=== PATIENT | male | born 1960 ===

== ENCOUNTER 2017-02-21 19:39 | Observation (INO) | payer OTHER ==
[~2017-02-21] VITALS: Ht 166.4 cm; Wt 82.6 kg
[2017-02-21] VITALS (7 sets, daily range): BP systolic 109–122; BP diastolic 66–78; PULSE 61–72; RESP 16–22; O2SAT 92–96
[~2017-02-21 19:39] MED LIST: FLUO40CA12 PO; LORA-302 PO; SMV40T PO; VICODIN 5-3251 EACH PO
--- NOTE | 2017-02-21 19:49 | ED.REPORT ---
HPI-Chest Pain 40 and Over Date of Service Feb 21, 2017 ED Provider: MD Pedro This is a 56 year old male with a history of AK, CAD, hypertension, hyperlipidemia, anxiety presenting to the emergency department via EMS due to sudden onsert right sided, sharp chest pain that began just prior to arrival. Pt was driving when he suddenly developed chest cramping. Denies radiation of pain. Denies SOB, nausea, vomiting, or diaphoresis. En route administered ASA, NTG, and fentanyl. Nitro provided mild relief. Nursing Notes Stated Complaint: CHEST PAIN Nursing Notes Reviewed: Yes Allergies: Coded Allergies: codeine (Verified Allergy, Severe, TOLERATES VICODIN PER PT/RN, 10/29/16) ibuprofen (Verified Allergy, Unknown, 10/29/16) morphine (Verified Allergy, Unknown, 10/29/16) Scheduled Aspirin (Aspirin) 81 Mg Tablet 81 MG PO DAILY Atorvastatin (Lipitor) 20 Mg Tablet 20 MG PO DAILY Fluoxetine (Fluoxetine) 20 Mg Capsule 20 MG PO DAILY Metoprolol Tartrate (Metoprolol Tartrate) 25 Mg Tablet 25 MG PO DAILY [place]-3 Fatty Acids (Fish Oil) 500 Mg Capsule.dr 1,000 MG PO DAILY Scheduled PRN Hydrocodone-Acetaminophen 5-300 mg (Hydrocodone-Acetaminophen 5-300 mg) 1 Each Tablet 1 TABLET PO TID PRN PRN For Pain Lorazepam (Lorazepam) 1 Mg Tablet 1 MG PO DAILY PRN PRN For Insomnia General Time Seen by MD: 19:49 Chief Complaint Chest pain Hx Obtained From: Patient Arrived By: Walk-in Sudden in Onset?: Yes Onset Occurred: Just prior to arrival Symptom Duration: Since onset Severity: Current: Mild Pertinent Negative: Pt denies other symptoms Recent Healthcare: No recent doctor visit, No recent hospitalization Similar Sx Previous: No Past Medical History Past Medical History Anxiety AK 2010 Coronary artery disease High cholesterol PTSD Osteoarthritis Reports: Asthma, Hyperlipidemia, Hypertension Reports: Depression Past Surgical History Mastoidectomy Right total hip replacement Right carpal tunnel release Reports: Tonsillectomy Smoking History Former Smoker Social History No IV drug use Alcohol Use: Denies alcohol use Drug Use: THC Other Social History: Good social support, , Local resident Ambulatory Status Independent Review of Systems Constitutional: Denies: Chills, Fever Respiratory: Denies: Shortness of breath Cardiovascular: Reports: Chest pain GI: Denies: Nausea, Vomiting Skin: Denies Diaphoresis Neurologic: Denies: Change LOC, Confusion, Headache Complete sys rev & neg: except as marked. Physical Exam Initial Vital Signs Vital Signs (First) Date Time Temp Pulse Resp B/P Pulse Ox O2 Delivery O2 Flow Rate FiO2 02/21/17 19:49 36.8 72 20 122/78 92 Room Air -- Initial VS: Reviewed Head / Eyes: Atraumatic, Normocephalic, PERRL ENT: Mucous membranes moist, Conjunctiva normal, No scleral icterus Neck: Supple, Non-tender, Full range of motion Extremities: Vascular intact, Neuro intact, No swelling, No tenderness Skin: Warm, Dry, No cyanosis Neurologic: Alert, Oriented, Nonfocal Psychiatric: Mood/affect normal, Behavior normal, Normal thought content General/Constitutional: Awake, Alert Respiratory / Chest: Breath sounds NL, Breath sounds = bilat, No respiratory distress, No rales, No rhonchi, No wheezing, No stridor, No chest tenderness Cardiovascular: Heart rate NL, Regular rhythm, Heart sounds NL, No murmurs, Peripheral circulation NL, Pulses = bilaterally, No gross BP differential Abdomen: Soft, Non-tender, McBurney's non-tender, No guarding, No rebound, BS normoactive, No distention, No hernia, No palpable mass Interpretation & Diagnostics Lab Results Interpretation Result Diagram: 02/21/17 1950 02/21/17 1950 Test 02/21/17 19:50 White Blood Count 7.7th/mm3 (3.8-10.1) Red Blood Count 4.94mil/mm3 (4.40-5.80) Hemoglobin 14.1g/dL (13.8-17.2) Hematocrit 41.8% (41.0-50.0) Mean Corpuscular Volume 84.6fL (81-100) Mean Corpuscular Hemoglobin 28.5pg (27.0-35.0) Mean Corpuscular Hemoglobin Concent 33.7% (32.0-37.0) Red Cell Distribution Width 14.6% (12.3-15.4) Platelet Count 269bil/L (150-400) Neutrophils (%) (Auto) 37.8% (40-74) Lymphocytes (%) (Auto) 48.6% (14-46) Monocytes (%) (Auto) 9.0% (4-12) Eosinophils (%) (Auto) 4.0% (0-5) Basophils (%) (Auto) 0.3% (0-3) Sodium Level 137mEq/L (134-144) Potassium Level 4.4mEq/L (3.5-5.2) Chloride Level 101mEq/L (97-108) Carbon Dioxide Level 19mmol/L (18-29) Blood Urea Nitrogen 17mg/dL (6-24) Creatinine 1.13mg/dL (0.76-1.27) Estimat Glomerular Filtration Rate 72mL/min (>59) Glucose Level 120mg/dL (60-99) Calcium Level 9.5mg/dL (8.5-10.1) Magnesium Level 2.1mg/dL (1.6-2.6) Total Bilirubin 0.7mg/dL (0.0-1.2) Aspartate Amino Transf (AST/SGOT) 29U/L (0-50) Alanine Aminotransferase (ALT/SGPT) 31U/L (0-44) Alkaline Phosphatase 108U/L (25-150) Troponin T < 0.010ug/L (0.0-0.011) Total Protein 7.8g/dL (6.4-8.4) Albumin 4.1g/dL (3.4-5.0) ECG Interpretation ECG Interpretation: NSR at a rate of [address] elevation less than one box in lead 3 T-wave inversion in AVR and AVL Unchanged from prior Time: 20:05 Interpreted by: ED physician Re-Eval/Medical Decision Med Decision/Clinical Course 56-year-old male with past medical history of CAD with AK in 2010, multiple other comorbidities here with chest pain after chopping wood. Differential diagnosis includes but is not limited to ST elevation AK versus non-ST elevation AK versus pneumonia versus pleural effusion. Patient's chest x-ray is unremarkable. EKG does not show ST elevation AK. His initial troponin is negative, and the remainder of his initial labs are unremarkable. He has been admitted to the hospitalist service for ACS rule out. He is aware and amenable to plan. Consultation : Referral / Consult Name: Tamara Herman DO Consulted With: Hospitalist Call Returned at: 21:13 Technical Customer Support Specialist: Accepts admit Counseled Regarding: Diagnosis, Lab results, Need for follow-up, Need for admission Discharge & Departure Primary Impression: Chest pain Chest pain type: unspecified Qualified Code: R07.9 - Chest pain, unspecified Disposition: ADMITTED TO HOSPITAL Discharge Condition All VS Reviewed: Yes Condition: Stable Referrals: Jagdish Khan MD (PCP) Scribe Attestation Portions of this note were transcribed by [place]. I, Dr. Vasquez personally performed the history, physical exam and medical decision-making; I reviewed and confirmed the accuracy of the information in the transcribed note. Signed by: marcie Solorzano. 02/21/2017, 03:00. Rochelle Vasquez MD Feb 21, 2017 19:49 [place] Feb 21, 2017 19:54
[2017-02-21 20:03] LABS: BASOPHILS % (AUTO) 0.3 % (0-3); Mean Corpuscular Hemoglobin 28.5 pg (27.0-35.0); Mean Corpuscular Volume 84.6 fL (81-100); NEUTROPHILS % (AUTO) 37.8 % (40-74); Platelet Count 269 bil/L (150-400)
[2017-02-21 20:34] LABS: TROPONIN T < 0.010 ug/L (0.0-0.011)
[2017-02-21 20:42] LABS: Magnesium 2.1 mg/dL (1.6-2.6)
[2017-02-21] MEDS ORDERED: Alum-Mag Hydrox-Simeth 30 mL Suspension PO PRN ×2 (21:55→22:00)
[2017-02-21] MEDS ORDERED: Ondansetron 2 mg/mL 2 mL Inj IVPUSH PRN ×2 (21:55→22:00)
[2017-02-21] MEDS ORDERED: Senna-Docusate 8.6-50 mg Tablet PO PRN (22:00)
[2017-02-21] MEDS ORDERED: Polyethylene Glycol (PEG) 17 Gm Powder PO PRN (22:00)
[2017-02-21] MEDS ORDERED: METO25TA6 PO (23:28)
[2017-02-21] MEDS ORDERED: OMEG500C PO (23:28)
[2017-02-21] MEDS ORDERED: ASPI-973 PO (23:28)
[2017-02-21] MEDS ORDERED: HYDR-3090 PO (23:28)
[2017-02-21] MEDS ORDERED: FLUO20CA25 PO (23:28)
[2017-02-21] MEDS ORDERED: ATOR20TA PO (23:28)
[2017-02-21] MEDS ORDERED: LORA1TAB PO (23:28)
[2017-02-21] MEDS: 0.9% Sodium Chloride 1,000 ML IV SCH (23:36)
[2017-02-21] MEDS: Sodium Chloride LOK Flush 10 mL Syringe IVFLUSH SCH (23:36)
--- NOTE | 2017-02-22 00:21 | PCM.HPMED ---
Subjective Date of Service Feb 22, 2017 Primary Provider: Admitting Physician: Tamara Herman DO Primary Care Physician: Jagdish Khan MD Attending Physician: Tamara Herman DO Admit Status: From the Emergency Department Chief Complaint: Chest pain History of Present Illness: Patient is a pleasant 36-year-old male with history of MS, coronary artery disease, hypertension, hyperlipidemia, and anxiety presented for acute onset sharp right-sided chest pain after abdomen chopping wood today. This is not unusual for patient to chopping wood. However he did report vigorously chopping wood earlier today prior to his chest pain onset. Patient was driving when pain began around 8 PM tonight. Patient states he was on his way to [facility] where he proceeded to go after his chest pain started. Patient reports that EMS was called while he was at [facility]. He describes the pain as sharp 7 out of 10 and involves the right anterior lateral chest. Should symptoms are shortness of breath. He reports that this is very different from his prior history of MS where the pain was dull and achy. Currently the patient's pain is 5 out of 10. He did reportedly improve slightly with nitroglycerin and with fentanyl. Patient was given 4 baby aspirin nitroglycerin 0.4 mg sublingual, and fentanyl by EMS. Patient did report that he was chopping wood rather vigorously earlier today. Chopping wood is not unusual for him, however he did say he was chopping vigorously today. Patient denies fevers, sweats, nausea, vomiting, pain that radiates to the neck shoulder or back, syncope, near syncope , cough, abdominal pain, diarrhea. Patient was admitted for acute coronary syndrome rule out. Vital signs: Temperature 36.8, pulse 72, respiratory rate 20, blood pressure 122 /78, 92% on room air. EKG: Showed normal sinus rhythm, rate of 72, isolated ST elevation in lead 3 of one box, T-wave inversion in aVR and aVL, old inferior wall infarct with Q waves in 2, 3 and aVF, CXR: Showed no acute cardiopulmonary process, no fractures, no pneumothorax. Chemistry panel, elevated glucose at 120, pro calcitonin 0.04 Troponin 0.010 Review of Systems: A comprehensive review of systems was conducted and was negative except as mentioned in history of present illness. Allergies Coded Allergies: codeine (Verified Allergy, Severe, TOLERATES VICODIN PER PT/RN, 10/29/16) ibuprofen (Verified Allergy, Unknown, 10/29/16) morphine (Verified Allergy, Unknown, 10/29/16) Home Medications Aspirin (Aspirin) 81 Mg Tablet 81 MG PO DAILY Atorvastatin (Lipitor) 20 Mg Tablet 20 MG PO DAILY Fluoxetine (Fluoxetine) 20 Mg Capsule 20 MG PO DAILY Metoprolol Tartrate (Metoprolol Tartrate) 25 Mg Tablet 25 MG PO DAILY [place]-3 Fatty Acids (Fish Oil) 500 Mg Capsule.dr 1,000 MG PO DAILY PRN Hydrocodone-Acetaminophen 5-300 mg (Hydrocodone-Acetaminophen 5-300 mg) 1 Each Tablet 1 TABLET PO TID PRN PRN For Pain Lorazepam (Lorazepam) 1 Mg Tablet 1 MG PO DAILY PRN PRN For Insomnia PMH Anxiety MS 2010 Coronary artery disease High cholesterol PTSD Osteoarthritis Reports: Asthma, Hyperlipidemia, Hypertension Reports: Depression Surgical History Mastoidectomy Right total hip replacement Right carpal tunnel release Reports: Tonsillectomy Family History We will obtain patient's family history Social History Hx Alcohol Use: No (None since dec) Hx Substance Use: Yes (prev THC) Hx Tobacco Use: Yes Smoking Status: Former Smoker Exam Vital Signs Vital Sign - Last Date Time Temp Pulse Resp B/P Pulse Ox O2 Delivery O2 Flow Rate FiO2 02/21/17 22:32 63 02/21/17 22:28 36.4 20 121/75 96 Room Air Exam General: Patient alert and oriented 3, does not appear to be in any acute distress, resting comfortably in bed. HEENT: NC/AT, eyes, PERRLA, EOMI, neck, soft supple, no adenopathy, no JVD, no masses, no thyromegaly, throat mucous membranes pink and moist, dentures on the top, poor dentition on the bottom, no erythema, no exudates, no tonsillar swelling, no uvular deviation. Lungs: Patient has muscle skeletal pain to palpation of the right anterior lateral chest wall and axilla consistent with costochondritis. CTAB all collazo , no wheezes, no rhonchi, no crackles, no adventitious lung sounds, no use of accessory muscles of respiration, good air movement, good respiratory effort. Heart: Heart is difficult to auscultate however regular rate and rhythm, no murmur, no rub, no click, no distant heart sounds, Abdomen: Soft, nontender, nondistended, bowel sounds active, no rebound, no guarding, Genitourinary: No CVA tenderness, no suprapubic tenderness, no Maria catheter Extremities:Pulses equal and symmetric upper/lower extremity including radial and dorsalis pedis, no edema the lower extremity bilaterally Neurologic: Grossly neurologically intact, weeks in full sentences, no focal neurological signs. Skin: Warm dry and intact without rash swelling or erythema Psychiatric: Mood is cheerful and mood and affect are congruent and appropriate. Lab and Diagnostics Result Diagram: 02/21/17194902/21/171949 Assessment & Plan Patient is a pleasant 36-year-old male with history of MIs coronary artery disease, hypertension, hyperlipidemia presented for acute onset sharp right- sided chest pain after abdomen chopping wood today. This is not unusual for patient to chopping wood. However he did report vigorously chopping wood earlier today prior to his chest pain onset. Patient was admitted for acute coronary syndrome rule out. #Rule out acute coronary syndrome/MS, in a patient with history of MS and coronary artery disease, present on admission, active -Patient patient received the following medications in route to ED: Aspirin 325 mg tablet, nitroglycerin 0.4 mg sublingual, and then fentanyl -Differential diagnosis includes costochondritis which is likely given patient' s physical exam findings and history. However acute coronary syndrome is still not ruled out. -EKG, Showed normal sinus rhythm, rate of 72, isolated ST elevation in lead 3 of one box, T-wave inversion in aVR and aVL, old inferior wall infarct with Q waves in 2, 3 and aVF, -CXR: Showed no acute cardiopulmonary process, no fractures, no pneumothorax. Reviewed -Troponin 0.010, continue to trend troponin -We will continue to trend Troponin T X 2 -Patient's shipping coordinator is Dr. Floyd. Pt. reportedly had stress testing done 1 week ago by his shipping coordinator. Patient is unaware of the results of the stress test and will need to follow-up on the results in the a.m. -Last stress test seen in [facility] was 05/10/2013: showed normal resting ECG. No significant ST segment depressions with stress. Patient developed occasional PVCs with exercise. Resting left ventricle systolic function was low normal. Left ventricular ejection fraction estimated to be 50-55%. There is mild hypokinesis of the proximal and mid inferolateral segment. Medial post-rest images showed normal augmentation of all wall segments without any new wall motion abnormality. Inferolateral contractility improved. The post stress ejection fraction was estimated to be 60-65%. -O2 Sats keep > 94% -IV fluids -Continue medication Metoprolol -Start Lisinopril 5 mg daily -Increasing atorvastatin from 20 mg daily to 40 mg daily -Morphine for pain control -Nitro SL, Nitro [place], Nitro Paste (PRN) -Aspirin 325mg -Continuous Cardiac Monitoring/BP monitoring -Labs (Lipid Panel, CBC, CMP, PT/PTT/INR) -Heart Healthy Diet # Costochondritis, present on admission, active - Agents chest pain is likely secondary to this finding on physical exam. Other chronic problems Anxiety/depression - We will continue home medication Ativan 1 mg daily in the a.m. - Will continue home medication Seroquel 100 mg daily at bedtime - Continue home medication fluoxetine 20 mg daily Hx of MS 2010 -[facility] Faller is Dr. Floyd Coronary artery disease -Increasing atorvastatin from 20 mg daily to 40 mg daily High cholesterol -Increasing atorvastatin from 20 mg daily to 40 mg daily PTSD -Continuing home Anxiety meds as stated above Osteoarthritis Asthma Hypertension -Continue home metoprolol Disposition: Admitted to in patient service with expected length of stay overnight for observation, secondary to severity of presenting symptoms, treatment plan, complexity of clinical work up, and risk of adverse events. CODE STATUS: Full code PCP: Jagdish Khan DVT PE prophylaxis: SubQ heparin Q8H Contact: Jay Jay, patient's , Pain Evaluation: Adequate Pain Control VTE Prophylaxis: Sub-Q Heparin (Unfractionated) Resuscitation Status: CPR: Attempt Resuscitation Attending Statement The patient was seen and examined together with house staff on 02/21/17 and I agree with the history, exam and plan as outlined in the note above. Joel Holbrook DO Feb 22, 2017 00:20 Tamara Herman DO Feb 22, 2017 03:09
--- NOTE | 2017-02-22 00:36 | NUR ---
Admit to 3010 Pt arrived to unit at 2205 alert and fully oriented; able to transfer self to bed. Ambulates to BR with steady gait. Reports improvement in chest pain but not fully resolved, 03/24. Denies SOB. Reports chronic back pain. IV fluids infusing, NPO status per orders, remote telemetry. Oriented to call light, hospital routines, plan of care; hourly rounding ongoing.
[2017-02-22 00:46] LABS: APPEARANCE,URINE CLEAR (CLEAR,HAZY); COLOR,URINE DARK YELLOW (YELLOW)
[2017-02-22 00:47] LABS: OCCULT BLOOD,URINE TRACE (NEGATIVE); PH,URINE 5.5 (5.0-8.0); UROBILINOGEN,URINE NORMAL (NORMAL)
[2017-02-22] MEDS ORDERED: LORazepam 1 mg Tablet PO PRN (01:20)
[2017-02-22] MEDS ORDERED: HYDROcodone-APAP 5-325 mg Tablet PO PRN (01:20)
[2017-02-22 05:56] VITALS: BP 115/69; PULSE 67; RESP 20; O2SAT 96
--- NOTE | 2017-02-22 06:02 | DRSVH ---
PROCEDURE: X-RAY CHEST ONE VIEW, PORTABLE ([id number]) INDICATIONS: Chest pain TECHNIQUE: One view of the chest was acquired. COMPARISON: [facility], CR, XR CHEST 1VW (PORTABLE), 10/29/2016, 16:19. FINDINGS: Surgical changes and devices: None. Lungs and pleura: No pleural effusions or pneumothorax. Lungs are clear. Mediastinum: Mediastinal contours appear normal. Heart size is normal. Bones and chest wall: No suspicious bony lesions. Overlying soft tissues appear unremarkable. IMPRESSION: No acute disease Dictated by: Michele Fay M.D. on 02/21/2017 at 21:21 Approved by: Michele Fay M.D. on 02/21/2017 at 21:22
[2017-02-22 06:18] LABS: BASOPHILS % (AUTO) 0.3 % (0-3); EOSINOPHILS % (AUTO) 5.2 % (0-5); MONOCYTES % (AUTO) 7.7 % (4-12); Mean Corpuscular Hemoglobin 28.8 pg (27.0-35.0); Mean Corpuscular Volume 86.1 fL (81-100); NEUTROPHILS % (AUTO) 45.5 % (40-74); Platelet Count 240 bil/L (150-400)
--- NOTE | 2017-02-22 06:30 | NUR ---
Pain pt reports that his chest pain is now totally resolved
[2017-02-22] MEDS ORDERED: Omega-3 Fatty Acids 1,000 mg Capsule PO SCH (08:00)
[2017-02-22] MEDS: Sodium Chloride LOK Flush 10 mL Syringe IVFLUSH SCH (08:30)
[2017-02-22] MEDS ORDERED: MeTOProlol XL 25 mg ER24 Tablet PO SCH (08:30)
[2017-02-22] MEDS ORDERED: Heparin 5,000 Unit/mL Inj SUBQ SCH (08:30)
[2017-02-22 08:37] VITALS: BP 118/76; PULSE 65; RESP 14; O2SAT 97
[2017-02-22] MEDS: 0.9% Sodium Chloride 1,000 ML IV SCH (08:40)
[2017-02-22 10:22] VITALS: PULSE 64
--- NOTE | 2017-02-22 13:06 | NUR ---
Social Work - Brief Note/Readiness for discharge Data: EMR reviewed. Pt is a 56 y/o male admitted 02/21/17 for chest pain resolved. Pt likely to discharge later today per morning rounds, and is up and independent in the room. Insurance is [employer] and PCP is Jagdish Khan MD. SW resides at home with and is independent at baseline. SW met with pt to confirm discharge plan. Pt's to provide transport home. No needs assessed at this time. SW will continue to follow. Assessment: Pt who is independent at baseline. Plan: Pt to discharge home via POV, no needs. SW will continue to follow. JUSTIN Godinze
--- NOTE | 2017-02-22 14:08 | PCM.DIMED ---
Discharge Instructions Date of Service Feb 22, 2017 Dates of Hospitalization Feb 21, 2017 at 22:09 Discharge Diagnosis Discharge Diagnosis Chest Pain Diet Heart Healthy Activity No restrictions Call your provider Fever or Chills, Shortness of breath, Bleeding, Chest pain, Vomitting, Excessive diarrhea, Weakness (unilateral) Patient Instructions Follow-up Provider: Jagdish Khan MD Follow-up with PCP in: 1 week Provider: Nael Floyd MD Follow-up in: 1 week (For Cardiac Follow Up) Kelvin Lema MD Feb 22, 2017 14:07
[2017-02-22] MEDS ORDERED: POLY17PO6 PO (14:12)
[2017-02-22] MEDS ORDERED: METO25TA99 PO (14:12)
[2017-02-22 14:48] VITALS: BP 126/71; PULSE 71; RESP 14; O2SAT 97
--- NOTE | 2017-02-22 16:23 | NUR ---
Social Work - discharge Data: EMR reviewed. Pt is a 56 y/o male admitted 02/21/17 for chest pain resolved. Pt medically cleared for discharge, and is up and independent in the room. Insurance is [employer] and PCP is Jagdish Khan MD. SW resides at home with and is independent at baseline. SW met with pt to confirm discharge plan. Pt's to provide transport home. No needs assessed at this time. Assessment: Pt who is independent at baseline. Plan: Pt to discharge home via POV, no needs. JUSTIN Godinez
--- NOTE | 2017-02-22 17:08 | NUR ---
Discharge Pt. discharged to home accompanied by and family at 1505 in stable condition. IV and tele dc'd prior to discharge. Pt. denies chest pain. Vitals stable. All belongings, scripts and instructions with pt. No questions or concerns at this time.
--- NOTE | 2017-02-23 01:30 | PCM.DC.MED ---
Discharge Summary Date of Service Feb 22, 2017 Dates of Hospitalization Date of Hospital Admission Feb 21, 2017 at 22:09 Date of Discharge: Feb 22, 2017 Providers: Admitting Physician: Tamara Herman DO Primary Care Physician: Jagdish Khan MD Attending Physician: Tamara Herman DO Diagnosis at Time of Discharge Diagnosis at Time of Discharge Chest Pain Procedures XRay, CTs & MRIs PROCEDURE: X-RAY CHEST ONE VIEW, PORTABLE ([id number]) INDICATIONS: Chest pain TECHNIQUE: One view of the chest was acquired. COMPARISON: [facility], CR, XR CHEST 1VW (PORTABLE), 10/29/2016, 16 :19. FINDINGS: Surgical changes and devices: None. Lungs and pleura: No pleural effusions or pneumothorax. Lungs are clear. Mediastinum: Mediastinal contours appear normal. Heart size is normal. Bones and chest wall: No suspicious bony lesions. Overlying soft tissues appear unremarkable. IMPRESSION: No acute disease Dictated by: Michele Fay M.D. on 02/21/2017 at 21:21 Approved by: Michele Fay M.D. on 02/21/2017 at 21:22 Brief History Patient is a pleasant 36-year-old male with history of [place], coronary artery disease, hypertension, hyperlipidemia, and anxiety presented for acute onset sharp right-sided chest pain after abdomen chopping wood today. This is not unusual for patient to chopping wood. However he did report vigorously chopping wood earlier today prior to his chest pain onset. Patient was driving when pain began around 8 PM tonight. Patient states he was on his way to [facility] where he proceeded to go after his chest pain started. Patient reports that EMS was called while he was at [facility]. He describes the pain as sharp 7 out of 10 and involves the right anterior lateral chest. Should symptoms are shortness of breath. He reports that this is very different from his prior history of [place] where the pain was dull and achy. Currently the patient's pain is 5 out of 10. He did reportedly improve slightly with nitroglycerin and with fentanyl. Patient was given 4 baby aspirin nitroglycerin 0.4 mg sublingual, and fentanyl by EMS. Patient did report that he was chopping wood rather vigorously earlier today. Chopping wood is not unusual for him, however he did say he was chopping vigorously today. Patient denies fevers, sweats, nausea, vomiting, pain that radiates to the neck shoulder or back, syncope, near syncope , cough, abdominal pain, diarrhea. Patient was admitted for acute coronary syndrome rule out. Vital signs: Temperature 36.8, pulse 72, respiratory rate 20, blood pressure 122 /78, 92% on room air. EKG: Showed normal sinus rhythm, rate of 72, isolated ST elevation in lead 3 of one box, T-wave inversion in aVR and aVL, old inferior wall infarct with Q waves in 2, 3 and aVF, CXR: Showed no acute cardiopulmonary process, no fractures, no pneumothorax. Chemistry panel, elevated glucose at 120, pro calcitonin 0.04 Troponin 0.010 Hospital Course Patient is a pleasant 36-year-old male with history of MIs coronary artery disease, hypertension, hyperlipidemia presented for acute onset sharp right- sided chest pain after abdomen chopping wood today. This is not unusual for patient to chopping wood. However he did report vigorously chopping wood earlier today prior to his chest pain onset. Patient was admitted for acute coronary syndrome rule out. #Rule out acute coronary syndrome/WA, in a patient with history of [place] and coronary artery disease, present on admission, active -Patient patient received the following medications in route to ED: Aspirin 325 mg tablet, nitroglycerin 0.4 mg sublingual, and then fentanyl -Differential diagnosis includes costochondritis which is likely given patient' s physical exam findings and history. However acute coronary syndrome is still not ruled out. -EKG, Showed normal sinus rhythm, rate of 72, isolated ST elevation in lead 3 of one box, T-wave inversion in aVR and aVL, old inferior wall infarct with Q waves in 2, 3 and aVF, -CXR: Showed no acute cardiopulmonary process, no fractures, no pneumothorax. Reviewed -Troponin 0.010, continue to trend troponin -We will continue to trend Troponin T X 2 -Patient's watch repair technician is Dr. Floyd. Pt. reportedly had stress testing done 1 week ago by his watch repair technician. Patient is unaware of the results of the stress test and will need to follow-up on the results in the a.m. -Last stress test seen in [facility] was 05/10/2013: showed normal resting ECG. No significant ST segment depressions with stress. Patient developed occasional PVCs with exercise. Resting left ventricle systolic function was low normal. Left ventricular ejection fraction estimated to be 50-55%. There is mild hypokinesis of the proximal and mid inferolateral segment. Medial post-rest images showed normal augmentation of all wall segments without any new wall motion abnormality. Inferolateral contractility improved. The post stress ejection fraction was estimated to be 60-65%. -O2 Sats keep > 94% -IV fluids -Continue medication Metoprolol -Start Lisinopril 5 mg daily -Increasing atorvastatin from 20 mg daily to 40 mg daily -Morphine for pain control -Nitro SL, Nitro Pepin, Nitro Paste (PRN) -Aspirin 325mg -Continuous Cardiac Monitoring/BP monitoring -Labs (Lipid Panel, CBC, CMP, PT/PTT/INR) -Heart Healthy Diet # Costochondritis, present on admission, active - Agents chest pain is likely secondary to this finding on physical exam. Other chronic problems Anxiety/depression - We will continue home medication Ativan 1 mg daily in the a.m. - Will continue home medication Seroquel 100 mg daily at bedtime - Continue home medication fluoxetine 20 mg daily Hx of WA 2010 -Facilities Plant Engineer is Dr. Floyd Coronary artery disease -Increasing atorvastatin from 20 mg daily to 40 mg daily High cholesterol -Increasing atorvastatin from 20 mg daily to 40 mg daily PTSD -Continuing home Anxiety meds as stated above Osteoarthritis Asthma Hypertension -Continue home metoprolol Disposition: Admitted to in patient service with expected length of stay overnight for observation, secondary to severity of presenting symptoms, treatment plan, complexity of clinical work up, and risk of adverse events. CODE STATUS: Full code PCP: Jagdish Khan DVT PE prophylaxis: SubQ heparin Q8H Contact: Jay Jay, patient's , Exam Vital Signs (Last) Date Time Temp Pulse Resp B/P Pulse Ox O2 Delivery O2 Flow Rate FiO2 02/22/17 14:48 36.6 71 14 126/71 97 Room Air Exam General: Patient is in no apparent distress. HEENT: Head is atraumatic and normocephalic. Eyes: Pupils are equally round and reactive to light and accommodation. Extraocular muscles are intact. Sclera are white, anicteric. Subconjunctival mucosa is pink. Ears and nose are unremarkable. Oropharynx: There is no mucosal lesions, there is no thrush, there is no pharyngitis. Neck: Is supple, there are no nodes, or masses or tenderness. Chest: Is clear to auscultation and percussion. There are no rales, rhonchi, wheezes or rubs. Heart: Rate, rhythm is regular. There is no murmur, rub or gallop. Abdomen: Good bowel sounds are present. Abdomen is soft, nontender, no organomegaly or masses were appreciated. Extremities: Are symmetrical and well perfused. There is no edema, there is no cellulitis, no rash. Neurologic: There are no focal neurological deficits. Cranial nerves II through XII are intact. There are no sensory or motor deficits. Psychiatric: Patients mood is calm and shows no sign of agitation. Genital: Deferred Rectal: Deferred Test 02/21/17 19:50 02/22/17 00:08 02/22/17 05:50 02/22/17 12:05 Magnesium Level 2.1mg/dL (1.6-2.6) Procalcitonin 0.04ng/mL (0.00-0.08) Urine Color Dark yellow (YELLOW) Urine Appearance Clear (CLEAR,HAZY) Urine pH 5.5 (5.0-8.0) Urine Specific [place] 1.025 (1.003-1.035) Urine Protein Negativemg/dL (NEG,TRACE) Urine Glucose (UA) Negativemg/dL (NEGATIVE) Urine Ketones Negativemg/dL (NEGATIVE) Urine Occult Blood Trace (NEGATIVE) Urine Nitrite Negative (NEGATIVE) Urine Bilirubin Negative (NEGATIVE) Urine Urobilinogen Normalmg/dL (NORMAL) Urine Leukocyte Esterase Negative (NEGATIVE) Urine RBC 3-10/hpf (0-2) Urine WBC 0-5/hpf (0-5) Urine Epithelial Cells Occasional/hpf (NONE-MOD) Urine Crystals None seen (NONE SEEN) Urine Bacteria None/hpf (NONE-FEW) Urine Hyaline Casts Occasional/lpf (NONE) Urine Granular Casts None seen (NONE SEEN) Urine Waxy Casts None seen (NONE SEEN) Urine Red Blood Cell Casts None seen (NONE SEEN) Urine White Blood Cell Casts None seen (NONE SEEN) Urine Mucus Present (None Seen) Urine Trichomonas None seen (NONE SEEN) Urine Yeast None (NONE SEEN) Urine Culture Reflexed Not indicated White Blood Count 6.4th/mm3 (3.8-10.1) Red Blood Count 4.66mil/mm3 (4.40-5.80) Hemoglobin 13.4g/dL (13.8-17.2) Hematocrit 40.1% (41.0-50.0) Mean Corpuscular Volume 86.1fL (81-100) Mean Corpuscular Hemoglobin 28.8pg (27.0-35.0) Mean Corpuscular Hemoglobin Concent 33.4% (32.0-37.0) Red Cell Distribution Width 14.7% (12.3-15.4) Platelet Count 240bil/L (150-400) Neutrophils (%) (Auto) 45.5% (40-74) Lymphocytes (%) (Auto) 41.1% (14-46) Monocytes (%) (Auto) 7.7% (4-12) Eosinophils (%) (Auto) 5.2% (0-5) Basophils (%) (Auto) 0.3% (0-3) Sodium Level 141mEq/L (134-144) Potassium Level 4.1mEq/L (3.5-5.2) Chloride Level 108mEq/L (97-108) Carbon Dioxide Level 20mmol/L (18-29) Blood Urea Nitrogen 14mg/dL (6-24) Creatinine 0.92mg/dL (0.76-1.27) Estimat Glomerular Filtration Rate 91mL/min (>59) Glucose Level 105mg/dL (60-99) Calcium Level 8.7mg/dL (8.5-10.1) Total Bilirubin 0.7mg/dL (0.0-1.2) Aspartate Amino Transf (AST/SGOT) 23U/L (0-50) Alanine Aminotransferase (ALT/SGPT) 28U/L (0-44) Alkaline Phosphatase 101U/L (25-150) Total Protein 6.9g/dL (6.4-8.4) Albumin 3.7g/dL (3.4-5.0) Troponin T < 0.010ug/L (0.0-0.011) Discharge Medications Discharge Medications Aspirin (Aspirin) 81 Mg Tablet 81 MG PO DAILY (Reported) Atorvastatin (Lipitor) 20 Mg Tablet 20 MG PO DAILY (Reported) Fluoxetine (Fluoxetine) 20 Mg Capsule 20 MG PO DAILY (Reported) Metoprolol Succinate ER (Metoprolol Succinate ER) 25 Mg Tab.er.24h 25 MG PO DAILY Prescribed by: FADI LEMA MD [place]-3 Fatty Acids (Fish Oil) 500 Mg Capsule.dr 1,000 MG PO DAILY (Reported) As needed Hydrocodone-Acetaminophen 5-300 mg (Hydrocodone-Acetaminophen 5-300 mg) 1 Each Tablet 1 TABLET PO TID PRN PRN For Pain (Reported) Lorazepam (Lorazepam) 1 Mg Tablet 1 MG PO DAILY PRN PRN For Insomnia (Reported) Polyethylene Glycol 3350 (Miralax) 17 Gm Powd.pack 17 GM PO DAILY PRN PRN For Constipation Prescribed by: FADI LEMA MD Followup Plan Disposition: She is being discharged home. Discharge Diet: Heart Healthy Discharge Activity: No restrictions Follow-up Provider: Jagdish Khan MD Follow-up with PCP in: 1 week Provider: Nael Floyd MD Follow-up in: 1 week Time spent Time spent on discharging this patient was greater than 35 minutes, over half of which was involved in counseling and coordination of care. Kelvin Lema MD Feb 23, 2017 01:30
== END 2017-02-22 16:00 | disposition home or self-care (01) ==
LOC: EDBD 19:39 → SED 19:39 → MPC 21:58 → SED 21:58 → MPC 22:09
PROVIDERS: ADMIT Internal Medicine; ATTEND Internal Medicine
DX: R07.9 Chest pain, unspecified (principal); I25.10 Atherosclerotic heart disease of native coronary artery without angina pectoris; I25.2 Old myocardial infarction; I10 Essential (primary) hypertension; E78.5 Hyperlipidemia, unspecified; M94.0 Chondrocostal junction syndrome [Tietze]; F41.8 Other specified anxiety disorders; F43.10 Post-traumatic stress disorder, unspecified; M19.90 Unspecified osteoarthritis, unspecified site; J45.909 Unspecified asthma, uncomplicated; Z87.891 Personal history of nicotine dependence; Z79.82 Long term (current) use of aspirin
CPT/HCPCS: 36415; 71010; 80053; 81000; 82948; 83036; 83735; 84145; 84484; 85025; 87641; 93005; 99285; G0378; J1644; J7030